=== PATIENT | female | born 1960 | race African-American/Black ===

== ENCOUNTER 2018-08-14 04:13 | Inpatient (IN) | payer OTHER ==
[~2018-08-14] VITALS: Ht 172.7 cm; Wt 68.5 kg
[2018-08-14] MEDS ORDERED: SODIUM CHLORIDE 0.9% 1,000 ML IV ONE ×2 (05:21→07:30)
[2018-08-14] MEDS ORDERED: ONDANSETRON HCL 4MG/2ML INJ IV STA (05:21)
[2018-08-14 05:47] LABS: BASOPHILS % 0.5 % (0.0-2.0); EOSINOPHILS % 0.7 % (0.0-5.0); HEMATOCRIT. 40.2 % (36.0-48.0); HEMOGLOBIN. 13.6 g/dL (12.0-16.0); LYMPHOCYTES % 16.6 % (20.0-50.0); MEAN CORPUSCULAR HEMOGLOBIN 31.4 pg (28.0-32.0); MEAN PLATELET VOLUME 7.4 fl (7.4-10.4); MONOCYTES % 5.8 % (2.0-8.0); NEUTROPHILS % 76.4 % (40.0-76.0); PLATELET 492 x1000/uL (130-400); RED BLOOD CELL COUNT 4.32 mill/uL (4.2-5.4); RED CELL DISTRIBUTION WIDTH 12.7 % (11.6-14.6)
[2018-08-14 05:49] LABS: CHLORIDE 100 mEq/L (98-107)
[2018-08-14 05:50] LABS: PROTHROMBIN TIME 10.1 sec (9.1-11.1)
[2018-08-14] MEDS ORDERED: METOCLOPRAMIDE HCL 10MG/2ML VIAL IV ONE (06:45)
[2018-08-14] MEDS ORDERED: DIPHENHYDRAMINE 50MG/ML VIAL IV ONE (06:45)
[2018-08-14 07:11] LABS: CLARITY URINE CLEAR (CLEAR); COLOR URINE YELLOW (YELLOW); KETONES URINE TRACE (NEGATIVE); LEUKOCYTE ESTERASE URINE TRACE (NEGATIVE); NITRITE URINE NEGATIVE (NEGATIVE); OCCULT BLOOD URINE NEGATIVE (NEGATIVE); PH URINE 6.5 (4.5-8.0); PROTEIN URINE 1+ (NEGATIVE); SPECIFIC GRAVITY URINE 1.012 (1.005-1.030); UROBILINOGEN URINE 0.2 E.U./dL (0.2-1.0)
[2018-08-14] MEDS ORDERED: POTASSIUM CHLORIDE INJ 30 MEQ in DEXT 5%/0.9% NACL 1,000 ML IV ONE (07:30)
[2018-08-14] MEDS ORDERED: CEFTRIAXONE 1 G PREMIX 50 ML IV ONE (07:30)
[2018-08-14] MEDS ORDERED: KETOROLAC 30MG/ML VIAL IV ONE (07:30)
[2018-08-14 10:46] LABS: *AMPHETAMINES SCREEN URINE NEGATIVE (NEGATIVE); *BARBITURATES SCREEN URINE NEGATIVE (NEGATIVE); *BENZODIAZEPINES SCREEN URINE NEGATIVE (NEGATIVE); *COCAINE SCREEN URINE NEGATIVE (NEGATIVE); CANNABINOID URINE SCREEN PRESUMTIVE POSITIVE (NEGATIVE); METHADONE URINE SCREEN NEGATIVE (NEGATIVE); OPIATES URINE SCREEN NEGATIVE (NEGATIVE); PHENCYCLIDINE URINE SCREEN NEGATIVE (NEGATIVE)
[2018-08-14 12:00] VITALS: BP 171/83
[2018-08-14] MEDS ORDERED: POTASSIUM CHLORIDE 20MEQ TABLET SR PO NR (13:15)
[2018-08-14] MEDS ORDERED: CLONIDINE 0.1MG TABLET PO PRN (13:15)
[2018-08-14] MEDS ORDERED: HYDROCODONE/ACETAMINOPHEN 5/325MG TABLET PO PRN (13:15)
[2018-08-14] MEDS ORDERED: ACETAMINOPHEN 325MG TABLET PO PRN (13:15)
[2018-08-14 13:20] VITALS: BP 171/83
[2018-08-14] MEDS: ONDANSETRON HCL 4MG/2ML INJ IV PRN ×2 (14:14→20:46)
[2018-08-14] MEDS: MORPHINE SULFATE 4 MG/ML CPJ (NOT FOR IM USE) IV PRN ×3 (14:15→23:04)
[2018-08-14] MEDS ORDERED: DULO60CA44 MT (15:38)
[2018-08-14] MEDS ORDERED: HYDR-4009 MT (15:39)
[2018-08-14 16:00] VITALS: BP 184/80
[2018-08-14] MEDS: LEVOFLOXACIN 500MG PREMIX 100 ML IV SCH (17:09)
[2018-08-14] MEDS: DEXT 5%/0.45% NACL 1000ML 1,000 ML IV SCH (17:09)
[2018-08-14 20:00] VITALS: BP 181/88
[2018-08-14] MEDS: LOSARTAN POTASSIUM 50 MG TABLET PO SCH (20:30)
[2018-08-14] MEDS: METOCLOPRAMIDE HCL 10MG/2ML VIAL IV SCH (23:04)
[2018-08-14 23:07] VITALS: BP 120/69
[2018-08-15 03:06] VITALS: BP 111/53
[2018-08-15] MEDS: ONDANSETRON HCL 4MG/2ML INJ IV PRN ×2 (03:10→08:53)
[2018-08-15] MEDS: DEXT 5%/0.45% NACL 1000ML 1,000 ML IV SCH ×2 (03:10→15:55)
[2018-08-15] MEDS: MORPHINE SULFATE 4 MG/ML CPJ (NOT FOR IM USE) IV PRN ×3 (03:13→13:29)
[2018-08-15] MEDS: METOCLOPRAMIDE HCL 10MG/2ML VIAL IV SCH ×3 (05:29→18:00)
[2018-08-15 07:53] LABS: BASOPHILS % 0.6 % (0.0-2.0); EOSINOPHILS % 0.9 % (0.0-5.0); HEMOGLOBIN. 12.2 g/dL (12.0-16.0); LYMPHOCYTES % 21.7 % (20.0-50.0); MEAN CORPUSCULAR HEMOGLOBIN 31.1 pg (28.0-32.0); MEAN CORPUSCULAR VOLUME 94.4 fL (81.0-99.0); MEAN PLATELET VOLUME 7.4 fl (7.4-10.4); MONOCYTES % 9.6 % (2.0-8.0); NEUTROPHILS % 67.2 % (40.0-76.0); PLATELET 405 x1000/uL (130-400); RED BLOOD CELL COUNT 3.92 mill/uL (4.2-5.4); RED CELL DISTRIBUTION WIDTH 12.9 % (11.6-14.6)
[2018-08-15 08:00] VITALS: BP 113/62
[2018-08-15] MEDS: LOSARTAN POTASSIUM 50 MG TABLET PO SCH (08:52)
[2018-08-15 09:10] LABS: CHLORIDE 99 mEq/L (98-107)
[2018-08-15] MEDS ORDERED: POTASSIUM CHLORIDE 20MEQ TABLET SR PO SCH (09:30)
[2018-08-15] MEDS ORDERED: PANTOPRAZOLE 40MG DR TABLET PO SCH (10:15)
[2018-08-15 12:00] VITALS: BP 110/48
[2018-08-15] MEDS: LEVOFLOXACIN 500MG PREMIX 100 ML IV SCH (13:34)
[2018-08-15 15:38] VITALS: BP 95/53
[2018-08-15 16:57] VITALS: BP 110/48
[2018-08-15 17:01] VITALS: BP 104/48
== END 2018-08-15 19:50 | disposition home or self-care (01) | DRG 723 ==
LOC: ER 04:13 → 6EST 11:06 → ENRESERV 11:33
PROVIDERS: ADMIT Internal Medicine; ATTEND Internal Medicine
DX: B34.8 Other viral infections of unspecified site (principal); D72.829 Elevated white blood cell count, unspecified; J44.9 Chronic obstructive pulmonary disease, unspecified; R51 Headache; E87.6 Hypokalemia; R11.2 Nausea with vomiting, unspecified; F12.90 Cannabis use, unspecified, uncomplicated; G89.29 Other chronic pain; I10 Essential (primary) hypertension; Z59.0 Homelessness; Z88.8 Allergy status to other drugs, medicaments and biological substances; Z79.899 Other long term (current) drug therapy
CPT/HCPCS: 36415; 71045; 72141; 72148; 80048; 80305; 83735; 84145; 96361; 96365; 96366; 96375; 99285; J0696; J1200; J1885; J1956; J2270; J2405; J2765; J3480; J7030; J7042